=== PATIENT | male | born 1990 | race Caucasian/White ===

== ENCOUNTER 2020-03-13 23:27 | Observation (INO) | payer BC ==
--- NOTE | 2020-03-14 00:10 | EDM.PDOC ---
ED HPI GENERAL MEDICAL PROBLEM - General Chief Complaint: General Stated Complaint: edema Time Seen by Provider: 03/13/20 23:45 Source of Information: Reports: Patient History Limitations: Reports: No Limitations - History of Present Illness INITIAL COMMENTS - FREE TEXT/NARRATIVE: Ascencion is a 30 yo male who presents to the ED with complaints of swelling and drainage to the toes of his left foot. States symptoms started yesterday. Did notice increase in redness today and felt discomfort walking on his toes. Has history of cellulitis of his lower legs on multiple occasions in the past. States today he hasn't been feeling well, generalized ill feeling. Denies any fevers. Admits his mother did notice some reddened area to the outside of his left calf today as well. Admits it is warm to touch. Duration: Getting Worse Location: Reports: Lower Extremity, Left - Related Data Allergies Allergy/AdvReac Type Severity Reaction Status Date / Time Penicillins Allergy Rash Verified 03/13/20 23:28 Home Meds: Home Meds Levothyroxine 1 tab PO DAILY 03/13/20 [History] Past Medical History - Past Health History Medical/Surgical History: Denies Medical/Surgical History HEENT History: Reports: None Respiratory History: Reports: Asthma Musculoskeletal History: Reports: Fracture Endocrine/Metabolic History: Reports: Obesity/BMI 30+ Dermatologic History: Reports: Other (See Below) - Past Surgical History HEENT Surgical History: Reports: Adenoidectomy, Tonsillectomy Social & Family History - Family History Family Medical History: Noncontributory - Tobacco Use Smoking Status *Q: Never Smoker - Caffeine Use Caffeine Use: Reports: None - Recreational Drug Use Recreational Drug Use: No - Living Situation & Occupation Living situation: Reports: Single, with Family ED ROS GENERAL - Review of Systems Review Of Systems: See Below Constitutional: Denies: Fever, Chills HEENT: Reports: Eye Discharge (left) Respiratory: Denies: Shortness of Breath, Wheezing, Cough Cardiovascular: Reports: No Symptoms. Denies: Chest Pain, Lightheadedness, Palpitations GI/Abdominal: Reports: No Symptoms. Denies: Abdominal Pain, Constipation, Diarrhea, Nausea, Vomiting : Reports: Incontinence. Denies: Discharge, Dysuria, Hematuria Musculoskeletal: Reports: Foot Pain. Denies: Leg Pain Skin: Reports: Erythema, Wound Neurological: Reports: No Symptoms Psychiatric: Reports: Anxiety ED EXAM, GENERAL - Physical Exam Exam: See Below Exam Limited By: No Limitations General Appearance: Alert, No Apparent Distress, Anxious, Obese Eye Exam: Left Eye: Conjunctival Injection Ears: Normal External Exam, Normal Canal, Hearing Grossly Normal, Normal TMs Nose: Normal Inspection, Normal Mucosa, No Blood Throat/Mouth: Normal Inspection, Normal Lips, Normal Teeth, Normal Gums, Normal Oropharynx, Normal Voice, No Airway Compromise Head: Atraumatic, Normocephalic Neck: Normal Inspection, Supple Respiratory/Chest: No Respiratory Distress, Lungs Clear, Normal Breath Sounds, No Accessory Muscle Use Cardiovascular: Regular Rate, Rhythm, No Murmur Extremities: Pedal Edema (2+ pitting edema bilaterally), Leg Pain, Increased Warmth, Redness Neurological: Alert, Oriented, Normal Cognition, No Motor/Sensory Deficits Psychiatric: Anxious Skin Exam: Erythema (12 cm X 7cm area of increased erythema and warmth to left lateral lower extremity. Area of maceration, erythema and increased wamrth to distal toes extending up to midfoot. Weeping noted in webbing of toes. ), Increased Warmth Course - Vital Signs Last Recorded V/S: Last Vital Signs Temp 98.6 F 03/13/20 23:31 Pulse 93 03/13/20 23:31 Resp 18 03/13/20 23:31 BP 152/96 H 03/13/20 23:31 Pulse Ox 97 03/13/20 23:31 - Orders/Labs/Meds Orders: Active Orders 24 hr Category Date Time Status CBC WITH AUTO DIFF [HEME] Stat Lab 03/13/20 23:53 Ordered COMPREHENSIVE METABOLIC PN,CMP [CHEM] Stat Lab 03/13/20 23:53 Ordered CRP [C-REACTIVE PROTEIN] [CHEM] Stat Lab 03/13/20 23:53 Ordered Departure - Departure Time of Disposition: 00:15 Disposition: Refer to Observation Clinical Impression: Cellulitis, Bacterial conjunctivitis of left eye - Discharge Information Referrals: Darin Saab PA-C [Primary Care Provider] - Sepsis Event Note (ED) - Evaluation Sepsis Screening Result: No Definite Risk - Focused Exam Vital Signs: Vital Signs Temp Pulse Resp BP Pulse Ox 03/13/20 23:31 98.6 F 93 18 152/96 H 97 - Problem List & Annotations (1) Bacterial conjunctivitis of left eye SNOMED Code(s): 974117400 Code(s): H10.9 - UNSPECIFIED CONJUNCTIVITIS Status: Acute Current Visit: Yes (2) Cellulitis SNOMED Code(s): 996729548 Code(s): L03.90 - CELLULITIS, UNSPECIFIED Status: Acute Priority: High Current Visit: Yes Onset Date: 01/17/16 - My Orders Last 24 Hours: My Active Orders 03/13/20 23:53 CBC WITH AUTO DIFF [HEME] Stat COMPREHENSIVE METABOLIC PN,CMP [CHEM] Stat CRP [C-REACTIVE PROTEIN] [CHEM] Stat - Assessment/Plan Admission H&P: Please use this note as an admission H&P Last 24 Hours: My Active Orders 03/13/20 23:53 CBC WITH AUTO DIFF [HEME] Stat COMPREHENSIVE METABOLIC PN,CMP [CHEM] Stat CRP [C-REACTIVE PROTEIN] [CHEM] Stat Plan: Will admit to observation status for IV antibiotics. Leg to be elevated to help with swelling. WBC and CRP slightly elevated. Discussed findings with Ascencion and his mother, both agree with admission. Patient transferred to the floor in satisfactory condition.
[2020-03-14 00:23] LABS: CHLORIDE,CL 101 mEq/L (98-106); SODIUM,NA 141 mEq/L (136-145)
[2020-03-14] MEDS ORDERED: Acetaminophen 325 MG Tab PO PRN (00:42)
[2020-03-14] MEDS ORDERED: Linezolid 600 MG in Premix Bag 1 BAG IV SCH (00:45)
[2020-03-14] MEDS: Enoxaparin 40 MG/0.4 ML Syringe SUBCUT SCH (02:16)
[2020-03-14] MEDS: Vancomycin/Water for INJ (PEG) 2 GM in Premix Bag 1 BAG IV SCH ×3 (02:17→16:37)
[2020-03-14 07:57] LABS: CHLORIDE,CL 104 mEq/L (98-106); SODIUM,NA 141 mEq/L (136-145)
[2020-03-14] MEDS: Levothyroxine 150 MCG Tab PO SCH (08:45)
[2020-03-15] MEDS: Vancomycin/Water for INJ (PEG) 2 GM in Premix Bag 1 BAG IV SCH ×2 (00:12→09:18)
[2020-03-15] MEDS: Enoxaparin 40 MG/0.4 ML Syringe SUBCUT SCH (00:12)
[2020-03-15 08:32] VITALS: BP 173/96; PULSE 84
[2020-03-15 08:55] LABS: CHLORIDE,CL 104 mEq/L (98-106); SODIUM,NA 141 mEq/L (136-145)
[2020-03-15] MEDS: Levothyroxine 150 MCG Tab PO SCH (08:56)
--- NOTE | 2020-03-15 12:19 | PCM.DCSUM1 ---
Discharge Summary - Hospital Course Free Text/Narrative:: Ascencion is a 21 year old male who presented to the ER with complaints of redness, swelling and drainage to the toes on his left foot that had started 24 hours prior. He also noted an area to the left side of his calf. Questions if started as a bug bite and he scratched at the area. Now it is larger and warm to the touch. Has a history of cellulitis. Had not felt well, generally feeling ill so presented to the ER. No fevers. WBC was 11.8, CRP 5.0. El ectrolytes and creatinine normal. Was admitted and started on IV vancomycin. culture done on foot. Diagnosis: Stroke: No Modified Gera Scale: No Symptoms at All Modified Gera Scale Score: 0 - Discharge Data Discharge Date: 03/15/20 Discharge Disposition: Home, Self-Care 01 Condition: Good - Referral to Home Health Primary Care Physician: Darin Saab PA-C - Patient Summary/Data Complications: none Consults: Consultations 03/14/20 00:42 PT Evaluation and Treatment [CONS] Routine Hospital Course: Patient is doing well. Remains afebrile. WBC has improved to 8.0. CRP is elevated at 9. Areas of redness, warmth have improved. Foot has less drainage from toes. Initial culture does show staph aureus, awaiting final report to be received tomorrow. Will discharge home. Cover with oral cleocin. Contact him with any concerns with culture/coverage. Follow up with Caleb Saab in 10 days. - Patient Instructions Diet: Usual Diet as Tolerated Activity: As Tolerated - Discharge Plan *PRESCRIPTION DRUG MONITORING PROGRAM REVIEWED*: No *COPY OF PRESCRIPTION DRUG MONITORING REPORT IN PATIENT CARLOS: No Prescriptions/Med Rec: Clindamycin HCl 300 mg PO QID #40 capsule Home Medications: Home Meds Levothyroxine 1 tab PO DAILY 03/13/20 [History] Clindamycin HCl 300 mg PO QID #40 capsule 03/15/20 [Rx] Patient Handouts: Cellulitis, Adult Forms: ED Department Discharge Referrals: Darin Saab PA-C [Primary Care Provider] - (See Caleb in 10 days ) - Discharge Summary/Plan Comment DC Time >30 min.: No - General Info Date of Service: 03/15/20 Admission Dx/Problem (Free Text: Cellulitis Functional Status: Reports: Pain Controlled, Tolerating Diet, Ambulating - Review of Systems General: Denies: Fever, Weakness, Fatigue, Malaise HEENT: Reports: No Symptoms Pulmonary: Denies: Shortness of Breath, Cough Cardiovascular: Denies: Chest Pain, Edema, Lightheadedness Gastrointestinal: Denies: Abdominal Pain, Nausea, Vomiting Genitourinary: Reports: No Symptoms Musculoskeletal: Reports: Leg Pain Skin: Reports: Other (redness to leg) Neurological: Reports: No Symptoms - Patient Data Vitals - Most Recent: Last Vital Signs Temp 97.4 F 03/15/20 08:00 Pulse 84 03/15/20 08:00 Resp 16 03/15/20 08:00 BP 173/96 H 03/15/20 08:00 Pulse Ox 97 03/15/20 08:00 Weight - Most Recent: 546 lb 3.2 oz I&O - Last 24 hours: Intake & Output 03/14/20 03/15/20 03/15/20 22:59 06:59 14:59 Intake Total 400 400 Balance 400 400 Lab Results - Last 24 hrs: Laboratory Results - last 24 hr 03/15/20 03/15/20 Range/Units 08:30 08:30 WBC 8.0 (5.0-10.0) 10^3/uL RBC 4.26 L (4.50-6.00) 10^6/uL Hgb 12.8 L (14.0-18.0) g/dL Hct 40.5 (40.0-54.0) % MCV 95.1 H (82.0-94.0) fL MCH 30.0 (27.0-32.0) pg MCHC 31.6 L (33.0-38.0) g/dL RDW Coeff of Gia 13.8 (11.0-15.0) % Plt Count 261 (150-400) 10^3/uL Neut % (Auto) 68.4 (35-85) % Lymph % (Auto) 16.4 (10-55) % [place] % (Auto) 10.4 (0-16) % Eos % (Auto) 4.4 (0-5) % Baso % (Auto) 0.4 (0-3) % Neut # (Auto) 5.46 (1.80-7.00) 10^3/uL Lymph # (Auto) 1.31 (1.00-4.80) 10^3/uL [place] # (Auto) 0.83 H (0.00-0.80) 10^3/uL Eos # (Auto) 0.35 (0.00-0.45) 10^3/uL Baso # (Auto) 0.03 10^3/uL Sodium 141 (136-145) mEq/L Potassium 4.1 (3.5-5.0) mEq/L Chloride 104 (98-106) mEq/L Carbon Dioxide 29 (21-32) mmol/L BUN 11 (7-18) mg/dL Creatinine 0.9 (0.7-1.3) mg/dL Est Cr Clr Drug Dosing 109.29 mL/min Estimated GFR (MDRD) > 60 (>=60) mL/min Glucose 141 H D (75-99) mg/dL Calcium 8.9 (8.4-10.1) mg/dL C-Reactive Protein 9.0 H (0.2-0.8) mg/dL Vancomycin Trough 17.4 (10-20) ug/mL SKYLAR Results - Last 24 hrs: Microbiology 03/14/20 01:00 Wound Culture - Preliminary Foot, Left Staphylococcus Aureus Med Orders - Current: Current Medications Acetaminophen (Tylenol) 650 mg PO Q4H PRN PRN Reason: Pain (Mild 1-3)/fever Enoxaparin Sodium (Lovenox) 40 mg SUBCUT Q24H [facility] Last Admin: 03/15/20 00:12 Dose: 40 mg Documented by: Vancomycin HCl 2 gm/ Premix 400 mls @ 200 mls/hr IV Q12H [facility] Levothyroxine Sodium (Levothyroxine) 150 mcg PO DAILY [facility] Last Admin: 03/15/20 08:56 Dose: 150 mcg Documented by: Vancomycin HCl (Pharmacy To Dose - Vancomycin) 1 dose .XX Q8H [facility] Discontinued Medications Linezolid 600 mg/ Premix 300 mls @ 300 mls/hr IV Q12H [facility] Vancomycin HCl 2 gm/ Premix 400 mls @ 200 mls/hr IV Q8H [facility] Stop: 03/15/20 12:00 Last Admin: 03/15/20 09:18 Dose: 200 mls/hr Documented by: - Exam General: Reports: Alert, Oriented HEENT: Reports: Mucous Membr. Moist/[place] Neck: Reports: Supple Lungs: Reports: Clear to Auscultation, Normal Respiratory Effort Cardiovascular: Reports: Regular Rate, Regular Rhythm GI/Abdominal Exam: Normal Bowel Sounds, Soft, Non-Tender Extremities: Pedal Edema Skin: Reports: Other (redness area to left calf improving) Wound/Incisions: Reports: Healing Well, Erythema Improving Neurological: Reports: No New Focal Deficit
[2020-03-15] MEDS ORDERED: Vancomycin/Water for INJ (PEG) 2 GM in Premix Bag 1 BAG IV SCH (21:00)
== END 2020-03-15 13:50 | disposition home or self-care (01) ==
LOC: CC.ED 23:27 → UNDOADMOB 03-14 00:21 → CC.MS 03-14 00:21
PROVIDERS: ADMIT Family Medicine; ATTEND Family Medicine
DX: L03.032 Cellulitis of left toe (principal); B95.61 Methicillin susceptible Staphylococcus aureus infection as the cause of diseases classified elsewhere; H10.32 Unspecified acute conjunctivitis, left eye; J45.909 Unspecified asthma, uncomplicated; E66.9 Obesity, unspecified; Z88.0 Allergy status to penicillin; Z68.45 Body mass index [BMI] 70 or greater, adult
CPT/HCPCS: 36415; 80048; 80053; 80202; 81003; 85025; 86140; 87070; 87077; 87186; 96365; 99284-25; A9270-GY; J1650; J3370

== ENCOUNTER 2022-06-11 11:15 | Observation (INO) | payer BC, OTHER ==
[2022-06-11] MEDS ORDERED: cefTRIAXone 1 GM Vial IVPUSH ONE (12:00)
[2022-06-11] MEDS ORDERED: Enoxaparin 40 MG/0.4 ML Syringe SUBCUT ONE (12:00)
[2022-06-11] MEDS ORDERED: Acetaminophen 325 MG Tab PO ONE ×2 (12:50→19:30)
[2022-06-12] MEDS ORDERED: Acetaminophen 325 MG Tab PO ONE ×2 (05:30→17:20)
[2022-06-12] MEDS ORDERED: cefTRIAXone 1 GM Vial IVPUSH ONE (12:00)
[2022-06-12] MEDS ORDERED: Enoxaparin 40 MG/0.4 ML Syringe SUBCUT ONE (12:00)
[2022-06-13] MEDS ORDERED: Acetaminophen 325 MG Tab PO ONE (07:30)
[2022-06-13] MEDS ORDERED: cefTRIAXone 1 GM Vial IVPUSH ONE (11:34)
[2022-06-13] MEDS ORDERED: Enoxaparin 40 MG/0.4 ML Syringe SUBCUT ONE (12:00)
[2022-07-08 17:19] LABS: CHLORIDE,CL 99 mEq/L (98-106); ESTIMATED GFR 92 mL/min (>=60); SODIUM,NA 137 mEq/L (136-145)
== END 2022-06-13 11:40 | disposition home or self-care (01) ==
LOC: CC.LAB 11:15 → CC.MS 11:20
PROVIDERS: ADMIT Physician Assistant Medical; ATTEND Nurse Practitioner Family
DX: L03.115 Cellulitis of right lower limb (principal); Z88.1 Allergy status to other antibiotic agents
CPT/HCPCS: 36415; 80053; 83605; 85025; 86140; A9270-GY; J0696; J1650